=== PATIENT | male | born 1950 | race Hispanic/Latino ===

== ENCOUNTER 2023-02-02 08:05 | Emergency (ER) | payer OTHER ==
[~2023-02-02] VITALS: Ht 180.3 cm; Wt 79.4 kg
[2023-02-02 09:05] LABS: SARS-CoV-2, RNA, NAAT POSITIVE SARS CoV-2 (NEGATIVE)
[2023-02-02 09:09] LABS: INFLUENZA TYPE A Negative For Type A (NEGATIVE); INFLUENZA TYPE B Negative For Type B (NEGATIVE); RAPID GROUP A STREP positive (NEGATIVE)
[2023-02-02 09:20] LABS: BASOPHILS # (AUTO) 0.03 K/uL (0.00-0.20); BASOPHILS % (AUTO) 0.4 % (0.0-5.0); EOSINOPHILS # (AUTO) 0.01 K/uL (0.00-0.70); EOSINOPHILS % (AUTO) 0.1 % (0.0-8.0); HEMATOCRIT 46.1 % (42-54); IMMATURE GRANULOCYTE ABSOLUTE 0.01 K/uL (0-1); LYMPHOCYTES # (AUTO) 0.9 K/uL (1.0-4.8); LYMPHOCYTES % (AUTO) 12.6 % (21.0-51.0); MEAN CORPUSCULAR HEMOGLOBIN 29.8 pg (27.0-33.0); MEAN CORPUSCULAR HGB CONC 34.1 g/dL (32.0-36.0); MEAN CORPUSCULAR VOLUME 87.5 fL (79-99); MONOCYTES # (AUTO) 0.8 K/uL (0.1-1.0); MONOCYTES % (AUTO) 11.6 % (3.0-13.0); NEUTROPHILS # (AUTO) 5.1 K/uL (1.8-7.7); NEUTROPHILS % (AUTO) 75.2 % (40.0-77.0); PLATELET COUNT (AUTO) 43 K/uL (130-400); RED BLOOD CELL COUNT(AUTO) 5.27 MIL/uL (4.50-6.20); RED CELL DISTRIBUTION WIDTH 12.8 % (11.0-15.5); WHITE BLOOD COUNT (AUTO) 6.7 K/uL (4.8-10.8)
[2023-02-02 09:21] LABS: CREATININE 1.4 mg/dL (0.5-1.5); POTASSIUM 4.5 mmol/L (3.5-5.1)
[2023-02-02 09:26] LABS: ALBUMIN 3.2 g/dL (3.5-5.0); MAGNESIUM 1.5 mg/dL (1.80-2.40); TOTAL PROTEIN, SERUM 7.1 g/dL (6.0-8.3)
[2023-02-02] MEDS ORDERED: 0.9% NACL 500ML IV.SOLN 500 ML IV ONE (10:00)
[2023-02-02] MEDS ORDERED: MAGNESIUM 2GM PREMIX 50ML 50 ML IV SCH (10:00)
[2023-02-02 13:08] LABS: APPEARANCE,URINE CLEAR (CLEAR); BILIRUBIN,URINE NEGATIVE (NEGATIVE); COLOR,URINE LIGHT-YELLOW (YELLOW); GLUCOSE, URINE (UA) >=1000 mg/dL (NEGATIVE); KETONES,URINE 10 mg/dL (NEGATIVE); LEUKOCYTE ESTERASE ,URINE NEGATIVE Leu/uL (NEGATIVE); NITRATE,URINE NEGATIVE (NEGATIVE); OCCULT BLOOD,URINE NEGATIVE (NEGATIVE); PROTEIN,URINE 10 mg/dL (NEGATIVE); UROBILINOGEN,URINE 0.2 mg/dL (0.2-1.0)
[2023-02-02 13:10] LABS: ADD UA MICROSCOPIC YES
[2023-02-02 13:12] LABS: MUCUS,URINE RARE LPF (None Seen); RBC,URINE 0-1 /HPF (0-1); WBC,URINE 0-1 /HPF (0-1)
[2023-02-02] MEDS ORDERED: AMOX500C2 PO (13:58)
[2023-02-02] MEDS ORDERED: NIRM1TAB PO (13:58)
[2023-02-02] MEDS ORDERED: AMOXICILLIN 500 MG CAPSULE PO ONE (14:00)
[2023-02-02 14:01] VITALS: BP 141/84; PULSE 88; RESP 16; O2SAT 97
== END 2023-02-02 14:31 | disposition home or self-care (01) ==
LOC: EDH 08:05
DX: R55 Syncope and collapse (principal); E86.9 Volume depletion, unspecified; E83.42 Hypomagnesemia; E11.9 Type 2 diabetes mellitus without complications; I10 Essential (primary) hypertension; Z95.1 Presence of aortocoronary bypass graft; Z20.822 Contact with and (suspected) exposure to COVID-19
CPT/HCPCS: 99285; 96365; 96366; 70450; 71045; 87635; 82550; 83735; 84484; 80053; 85025; 87880; 87804 ×2; 83605; 81001; 36415; 93005 ×2; C9803; J3475; J7040